=== PATIENT | female | born 1935 | race Caucasian/White ===

== ENCOUNTER 2021-08-31 08:00 | Outpatient (CLI) | payer MEDICARE, BC | END 2021-08-31 23:59 | LOC: LAB 08:00 | PROVIDERS: ATTEND Family Medicine | DX: R39.9 Unspecified symptoms and signs involving the genitourinary system (principal) | CPT/HCPCS: 87086 ==

== ENCOUNTER 2022-03-21 06:57 | Outpatient (CLI) | payer MEDICARE, BC | END 2022-03-21 23:59 | disposition critical access hospital (66) | LOC: EMS 06:57 | DX: R46.89 Other symptoms and signs involving appearance and behavior (principal); R45.1 Restlessness and agitation; M54.9 Dorsalgia, unspecified | CPT/HCPCS: A0425; A0429 ==

== ENCOUNTER 2022-03-21 07:18 | Emergency (ER) | payer MEDICARE, BC ==
--- OUTSIDE RECORDS SUMMARY | 2022-03-21 07:34 | EXTERNAL MEDICAL SUMMARY RPT | Continuity of Care Document ---
:1935 Author Organization [facility] Address [address] [place] [address] Phone Care Team Providers Name Role Phone Millicent Thomas Unavailable Unavailable Allergies No information. Encounters No information. Medications date description facility 20220319 Baclofen 10 MG Oral Tablet [facility] ital 20220117 Cephalexin 500 MG Oral Capsule [facility] 20220117 Phenazopyridine hydrochloride 100 MG Or al Tablet [facility] 20220107 Levothyroxine Sodium 0.088 MG Oral Tabl et [facility] 20220107 Metoprolol Tartrate 25 MG Oral Tablet [facility] 20220107 24 HR Diltiazem Hydrochloride 300 MG Ex tended Release [facility] Capsule 20220107 atorvastatin 10 MG Oral Tablet [facility] Problems date description facility [id number] [facility] 20220220 Malignant neoplasm of unspecified site of left [facility] breast 20220220 Encounter for screening mammogram for [facility] neoplasm of 20220117 [facility] 20220107 Type 2 diabetes mellitus without compli [facility] [id number] Malignant neoplasm of unspecified site of left female [facility] breast 20220107 Hyperlipidemia, unspecified [facility] 20220103 Cardiac murmur, unspecified [facility] Procedures date description facility [id number] [facility] [id number] [facility] [id number] [facility] [id number] [facility] [id number] [facility] [id number] [facility] Results No information. Vital Signs date measurement value source 20220117 weight_standard 48.53 lb 20220117 weight_metric 22.01 kg 20220117 heart_rate 86 /min 20220117 BP_systolic 145 mm[Hg] 20220117 BP_diastolic 95 mm[Hg] 20220305 weight_standard 48.62 lb 20220305 weight_metric 22.05 kg 20220305 temperature_standard 97.7 F 20220305 temperature_metric 36.5 C 20220305 respiration_rate 14 /min 20220305 heart_rate 67 /min 20220305 BP_systolic 142 mm[Hg] 20220305 BP_diastolic 80 mm[Hg] 20220319 weight_standard 49.44 lb 20220319 weight_metric 22.43 kg 20220319 temperature_standard 98.4 F 20220319 temperature_metric 36.89 C 20220319 respiration_rate 18 /min 20220319 height_standard 62 in 20220319 height_metric 157.48 cm 20220319 heart_rate 97 /min 20220319 BP_systolic 131 mm[Hg] 20220319 BP_diastolic 65 mm[Hg] 20220319 BMI 19.9 kg/m2
[2022-03-21] MEDS ORDERED: KETOROLAC 15 MG/ML VIAL IVP STA (07:38)
--- NOTE | 2022-03-21 07:40 | ED Physician Documentation ---
PD HPI BACK PAIN - Stated complaint Stated Complaint: BACK SPASM/PX - Chief complaint Chief Complaint: Back Pain - History obtained from History obtained from: Patient, Family (daughter), EMS - Additional information Additional information: 86-year-old woman with history of A. fib, type 2 diabetes who lives with her daughter. She was awoken Friday morning a little over 48 hours ago with severe left-sided neck pain. They went to [facility] and it was felt to be neck spasm based on symptomatology and examination. Was given some pain control, in the hospital with Percocet and Flexeril. Discharged on baclofen. She went home with her daughter where she has been very sleepy, sleeping 22 hours a day. Poor appetite and some combativeness per the doctor daughter. Pain continued to be significant though. Today she developed a fever at 100.9. Pain is worse with movement and in certain positions. No history of similar prior issues. She is on Pradaxa. Chronically in A. fib. Review of Systems Unable to obtain: Confused (She is confused and much of the history is from the daughter) PD PAST MEDICAL HISTORY - Present Medications Home Medications: Ambulatory Orders Medication Instructions Recorded Confirmed Atorvastatin [Lipitor] 10 mg PO DAILY 03/21/22 03/21/22 Calcium Carbonate [Calcium] 1 tab PO DAILY 03/21/22 03/21/22 Cefdinir 300 mg PO BID #20 cap 03/21/22 Dabigatran [Pradaxa] 150 mg PO BID 03/21/22 03/21/22 Diltiazem HCl [Cardizem Cd] 300 mg PO DAILY 03/21/22 03/21/22 Levothyroxine [Synthroid] 88 mcg PO DAILY 03/21/22 03/21/22 Metoprolol Tartrate [Lopressor] 25 mg PO BID 03/21/22 03/21/22 SITagliptin [Januvia] 100 mg PO DAILY 03/21/22 03/21/22 - Allergies Allergies/Adverse Reactions: Allergies Allergy/AdvReac Type Severity Reaction Status Date / Time moxifloxacin [From Avelox] Allergy Unknown Verified 03/21/22 07:24 PD ED PE NORMAL - Vitals Vital signs reviewed: Yes - General General: No acute distress (But winces with motion), Other (She is alert and oriented to person and place, states the date is March 02, 2022.) - HEENT HEENT: PERRL, EOMI - Neck Neck: Supple, no meningeal sign, Other (Tender over the C-spine especially to the right paracervical muscles) - Cardiac Cardiac: Other (Irregularly irregular with 2 out of 6 decrescendo systolic murmur) - Respiratory Respiratory: No respiratory distress, Clear bilaterally - Abdomen Abdomen: Normal bowel sounds, Soft, Non tender - Back Back: No CVA TTP, Other (Tender to the upper parathoracic muscles bilaterally) - Derm Derm: Normal color, Warm and dry - Extremities Extremities: No edema, No calf tenderness / cord, Other (The patient has equal and normal Achilles and patellar reflexes bilaterally. Normal sensation in all areas of the legs. Patient denies saddle anesthesia. Normal strength in flexi on-extension at the ankles, knees, and flexion of the hips.) - Neuro Eye Opening: Spontaneous Motor: Obeys Commands Verbal: Confused GCS Score: 14 Results - Vitals Vitals: Vital Signs - 24 hr 03/21/22 03/21/22 03/21/22 07:20 09:28 10:00 Temperature 36.7 C Heart Rate 97 83 85 Respiratory 19 16 18 Rate Blood Pressure 160/77 H 159/79 H 138/62 H O2 Saturation 96 96 97 03/21/22 11:45 Temperature Heart Rate 86 Respiratory 15 Rate Blood Pressure 166/83 H O2 Saturation 99 Oxygen O2 Source Room air - EKG (time done) 0755 Rate: Rate (enter#) (89) Rhythm: Atrial fibrillation [place]: Normal QRS: Normal Ischemia: Q waves (anterior). No: ST elevation c/w ischemia, ST depression Compare to prior EKG: Old EKG unavailable Computer interpretation: Agree with computer - Labs Labs: Laboratory Tests 03/21/22 03/21/22 03/21/22 07:49 07:49 07:49 WBC 11.4 H RBC 4.95 Hgb 13.0 Hct 41.0 MCV 82.8 MCH 26.3 L MCHC 31.7 L RDW 16.5 H Plt Count 167 MPV 10.9 H Neut # (Auto) 8.6 H Lymph # (Auto) 1.4 L [place] # (Auto) 1.3 H Eos # (Auto) 0.1 Baso # (Auto) 0.0 Absolute Nucleated RBC 0.00 Nucleated RBC % 0.0 Sodium 137 Potassium 3.5 Chloride 97 L Carbon Dioxide 29 Anion Gap 11.0 BUN 10 Creatinine 0.6 Estimated GFR (MDRD) 95 Glucose 181 H Lactic Acid Calcium 9.0 Total Bilirubin 1.0 AST 35 ALT 30 Alkaline Phosphatase 134 H Troponin I High Sens 15.0 H* Total Protein 7.3 Albumin 3.3 Globulin 4.0 Albumin/Globulin Ratio 0.8 L Urine Color Urine Clarity Urine pH Ur Specific [place] Urine Protein Urine Glucose (UA) Urine Ketones Urine Occult Blood Urine Nitrite Urine Bilirubin Urine Urobilinogen Ur Leukocyte Esterase Ur Microscopic Review Urine Culture Comments Nasal Adenovirus (PCR) Nasal B. parapertussis DNA (PCR) Nasal Coronavir 229E PCR Nasal Coronavir HKU1 PCR Nasal Coronavir NL63 PCR Nasal Coronavir OC43 PCR Nasal Enterovir/Rhinovir PCR Nasal Influenza B PCR Nasal Influenza A PCR Nasal Parainfluen 1 PCR Nasal Parainfluen 2 PCR Nasal Parainfluen 3 PCR Nasal Parainfluen 4 PCR Nasal RSV (PCR) Nasal B.pertussis DNA PCR Nasal C.pneumoniae (PCR) Gus Human Metapneumo PCR Nasal M.pneumoniae (PCR) Nasal SARS-CoV-2 (PCR) 03/21/22 03/21/22 03/21/22 07:49 07:49 11:16 WBC RBC Hgb Hct MCV MCH MCHC RDW Plt Count MPV Neut # (Auto) Lymph # (Auto) [place] # (Auto) Eos # (Auto) Baso # (Auto) Absolute Nucleated RBC Nucleated RBC % Sodium Potassium Chloride Carbon Dioxide Anion Gap BUN Creatinine Estimated GFR (MDRD) Glucose Lactic Acid 1.6 Calcium Total Bilirubin AST ALT Alkaline Phosphatase Troponin I High Sens Total Protein Albumin Globulin Albumin/Globulin Ratio Urine Color YELLOW Urine Clarity CLEAR Urine pH 6.0 Ur Specific [place] 1.015 Urine Protein NEGATIVE Urine Glucose (UA) NEGATIVE Urine Ketones 40 H Urine Occult Blood TRACE-INTA Urine Nitrite NEGATIVE Urine Bilirubin NEGATIVE Urine Urobilinogen 0.2 (NORMAL) Ur Leukocyte Esterase NEGATIVE Ur Microscopic Review NOT INDICATED Urine Culture Comments NOT INDICATED Nasal Adenovirus (PCR) NOT DETECTED Nasal B. parapertussis DNA (PCR) NOT DETECTED Nasal Coronavir 229E PCR NOT DETECTED Nasal Coronavir HKU1 PCR NOT DETECTED Nasal Coronavir NL63 PCR NOT DETECTED Nasal Coronavir OC43 PCR NOT DETECTED Nasal Enterovir/Rhinovir PCR NOT DETECTED Nasal Influenza B PCR NOT DETECTED Nasal Influenza A PCR NOT DETECTED Nasal Parainfluen 1 PCR NOT DETECTED Nasal Parainfluen 2 PCR NOT DETECTED Nasal Parainfluen 3 PCR NOT DETECTED Nasal Parainfluen 4 PCR NOT DETECTED Nasal RSV (PCR) NOT DETECTED Nasal B.pertussis DNA PCR NOT DETECTED Nasal C.pneumoniae (PCR) NOT DETECTED Gus Human Metapneumo PCR NOT DETECTED Nasal M.pneumoniae (PCR) NOT DETECTED Nasal SARS-CoV-2 (PCR) NOT DETECTED - Rads (name of study) CT of the neck and chest shows degenerative changes, enlarged heart and suggestion of pulmonary hypertension Radiology: EMP read contemporaneously PD MEDICAL DECISION MAKING - ED course ED course: This is a tiago 86-year-old woman who presents with her daughter for ongoing neck pain. Diagnosed the other day with a neck spasm. She was febrile early this morning at home we cannot corroborate it despite several hours of observation here. She had a modestly elevated white count but no findings of intrathoracic infection on CT and a normal urinalysis. Also negative COVID test with other viruses checked as well. During her stay she remained well-appearing and nontoxic. She received 50 mg of Toradol with good relief of her pain and passed a road test without issue. CT imaging of the neck and chest were done to evaluate for other etiologies with findings of only degenerative disease. Daughter happy to take her home after work-up. Discussed with her that I think a lot of her altered mental status was from medication the received the other day at the other hospital and given her age and underlying dementia, sedating medication should probably be avoided if able. Given that she appeared well with minimal pain after Toradol and Tylenol here, Tylenol was recommended to be continued as well as Salonpas patches. After the patient's discharge medical lab tech instructor came to me and said she had 2 urines with this patient's name on it. The original 1 is the one that was resulted with no signs of infection. A second 1 did show white cells, nitrite. We will culture it and I called the daughter and sent a prescription for antibiotics to the pharmacy. Departure - Departure Disposition: Home, Self Care Clinical Impression: Neck pain Condition: Good Record reviewed to determine appropriate education?: Yes Instructions: ED Neck Back Pain General Prescriptions: Cefdinir 300 mg PO BID #20 cap Comments: As discussed she has severe degenerative change in her neck, no findings of infection in the chest or urine. Also negative COVID test. I recommend continuing the Tylenol, 1000 mg every 6-8 hours and Salonpas patches. Follow-up with your doctor on Friday as scheduled. Return for new or worsening symptoms. Discharge Date/Time: 03/21/22 12:16
[2022-03-21 07:58] LABS: BASOPHILS % (AUTO) 0.4 %; EOSINOPHILS # (AUTO) 0.1 10^3/uL (0.0-0.7); EOSINOPHILS % (AUTO) 0.7 %; LYMPHOCYTES # (AUTO) 1.4 10^3/uL (1.5-3.5); LYMPHOCYTES % (AUTO) 11.8 %; MEAN CORPUSCULAR HEMOGLOBIN 26.3 pg (27.0-31.0); MEAN CORPUSCULAR HGB CONC 31.7 g/dL (32.0-36.0); MEAN CORPUSCULAR VOLUME 82.8 fL (81.0-99.0); MEAN PLATELET VOLUME 10.9 fL (7.9-10.8); MONOCYTES # (AUTO) 1.3 10^3/uL (0.0-1.0); MONOCYTES % (AUTO) 11.6 %; NEUTROPHILS # (AUTO) 8.6 10^3/uL (1.5-6.6); PLT - PLATELET COUNT 167 10^3/uL (130-450); RED BLOOD COUNT 4.95 10^6/uL (4.20-5.40); RED CELL DISTRIBUTION WIDTH 16.5 % (12.0-15.0); WHITE BLOOD COUNT 11.4 x10^3/uL (4.8-10.8)
[2022-03-21] MEDS ORDERED: IOPAMIDOL-300 100 ML VIAL ONE (08:03)
[2022-03-21 08:11] LABS: ALBUMIN 3.3 g/dL (3.2-5.5); ALBUMIN/GLOBULIN RATIO 0.8 (1.0-2.2); CREATININE 0.6 mg/dL (0.4-1.0); POTASSIUM 3.5 mmol/L (3.5-5.0); TOTAL PROTEIN 7.3 g/dL (6.7-8.2)
[2022-03-21 08:55] LABS: B. PARAPERTUSSIS- RESP PCR PAN NOT DETECTED; B. PERTUSSIS- RESP PCR PANEL NOT DETECTED; C. PNEUMONIAE- RESP PCR PANEL NOT DETECTED; CORONAVIRUS 229E-RESP PCR NOT DETECTED; CORONAVIRUS HKU1-RESP PCR NOT DETECTED; CORONAVIRUS NL63-RESP PCR NOT DETECTED; CORONAVIRUS OC43-RESP PCR NOT DETECTED; HUMAN METAPNEUMOVIRUS NOT DETECTED; INFLUENZA A- RESP PCR PANEL NOT DETECTED; INFLUENZA B - RESP PCR PANEL NOT DETECTED; M. PNEUMONIAE- RESP PCR PANEL NOT DETECTED; PARAINFLUENZA VIRUS 1 NOT DETECTED; PARAINFLUENZA VIRUS 2 NOT DETECTED; PARAINFLUENZA VIRUS 3 NOT DETECTED; PARAINFLUENZA VIRUS 4 NOT DETECTED; RHINOVIRUS/ENTEROVIRUS NOT DETECTED; RSV- RESP PCR PANEL NOT DETECTED; SARS-CoV-2 -RESP PCR PANEL NOT DETECTED
[2022-03-21] MEDS ORDERED: IOPAMIDOL-300 100 ML VIAL IVP ONE (09:07)
--- NOTE | 2022-03-21 09:18 | CT Report ---
PROCEDURE: CERVICAL SPINE WO INDICATIONS: neck pain TECHNIQUE: Noncontrast 3 mm thick sections acquired from the skull base to the T4 level. Sagittal and coronal r eformats were then constructed. For radiation dose reduction, the following was used: automated exp osure control, adjustment of mA and/or kV according to patient size. COMPARISON: None. FINDINGS: Image quality: Excellent. Bones: No fractures or dislocations. Visualized superior ribs are intact. Significant multilevel d egenerative changes are present including severe disc space narrowing at C4-5, C5-6, C6-7. There is r eversal cervical curvature with apex at C5-6. 3 mm anterolisthesis is present at C3 on C4. Multilevel anterior osteophytes are present most severe from C4 through C7. Multilevel uncovertebral hypertroph y is present. Soft tissues: Prevertebral soft tissues are normal in thickness. No paravertebral hematomas. No ap ical pneumothoraces. IMPRESSION: Multilevel degenerative changes without visualized fracture. Reviewed by: Yandy Gutierrez MD on 03/21/2022 8:17 AM KIRAN Approved by: Yandy Gutierrez MD on 03/21/2022 8:17 AM KIRAN Station ID: [id number]
--- NOTE | 2022-03-21 09:24 | CT Report ---
PROCEDURE: ANGIO CHEST W/WO INDICATIONS: Upper back pain, aorta protocol CONTRAST: IV CONTRAST: Isovue 300 ml: 80 PO CONTRAST: *NO PO CONTRAST TECHNIQUE: After the administration of intravenous contrast, 2 mm axial images were acquired from the pulmonary apices to the posterior costophrenic angles during the arterial phase. In addition, 1 mm lung kernel and 5 mm soft tissue kernel reconstructions were performed. 3-dimensional coronal oblique maximum int ensity projection (MIP) reformats, 8 mm axial MIP, and 5 mm coronal and sagittal MPR reformats were t hen performed through the thorax. For radiation dose reduction, the following was used: automated exp osure control, adjustment of mA and/or kV according to patient size. COMPARISON: None FINDINGS: Image quality: Excellent. Pulmonary arteries: Pulmonary arteries are mildly enlarged. There are no intraluminal filling defect s to suggest central pulmonary embolism. Lungs and pleura: Lungs are clear. No pleural effusions or pneumothorax. Central and peripheral ai rways are patent. Mediastinum: Heart size is markedly enlarged, without pericardial effusion. No mediastinal or hilar adenopathy. Ascending thoracic aorta measures 3.5 cm. Esophagus is normal in caliber, without hiatal hernia. Bones and chest wall: No suspicious bony lesions. Ribs and thoracic spine appear intact throughout. No axillary or supraclavicular adenopathy. Thyroid gland is not visualized. Abdomen: Visualized upper abdominal solid organs appear normal in the early arterial phase of enhanc ement. IMPRESSION: No pulmonary embolism. Heart is markedly enlarged. Pulmonary arteries are enlarged suggesting pulmonary artery hypertension. CLINICAL RECOMMENDATION STATEMENTS: In patients <35 years with an ITN detected on CT, MRI, or extrathyroidal ultrasound, the Committee re commends further evaluation with dedicated thyroid ultrasound if the nodule is "e1 cm and has no susp icious imaging features, and if the patient has normal life expectancy. In patients "e35 years with an ITN detected on CT, MRI, or extrathyroidal ultrasound, the Committee r ecommends further evaluation with dedicated thyroid ultrasound if the nodule is "e1.5 cm and has no s uspicious imaging features, and if the patient has normal life expectancy. (ACR, 2014) Reviewed by: Yandy Gutierrez MD on 03/21/2022 8:23 AM KIRAN Approved by: Yandy Gutierrez MD on 03/21/2022 8:23 AM [place] Station ID: [id number]
[2022-03-21] MEDS ORDERED: SODIUM CHLORIDE 0.9% 1,000 ML IV STA (10:06)
[2022-03-21 11:29] LABS: BILIRUBIN,URINE NEGATIVE (NEGATIVE); GLUCOSE, URINE (UA) NEGATIVE (NEGATIVE); PROTEIN,URINE NEGATIVE (NEGATIVE); UROBILINOGEN,URINE 0.2 (NORMAL) E.U./dL (NORMAL)
[2022-03-21] MEDS ORDERED: ACETAMINOPHEN 500 MG TABLET PO STA (11:40)
[2022-03-21 11:55] VITALS: BP 166/83
[2022-03-21 12:43] LABS: CLARITY,URINE SL. CLOUDY (CLEAR); LEUKOCYTE ESTERASE, URINE MODERATE (NEGATIVE); NITRITE,URINE POSITIVE (NEGATIVE)
[2022-03-21 12:44] LABS: KETONES,URINE (UA) NEGATIVE (NEGATIVE); OCCULT BLOOD,URINE NEGATIVE (NEGATIVE); PH,URINE 6.5 PH (5.0-7.5)
[2022-03-21 12:45] LABS: BACTERIA,URINE Moderate /HPF (None Seen); RBC,URINE 0-5 /HPF (0-5); SQUAMOUS EPITHELIAL CELL,UR RARE Squamous (<= Few)
== END 2022-03-21 12:16 | disposition home or self-care (01) ==
LOC: EDUNIT# → ED 07:18
DX: M54.2 Cervicalgia (principal); N12 Tubulo-interstitial nephritis, not specified as acute or chronic; Z20.822 Contact with and (suspected) exposure to COVID-19
CPT/HCPCS: 36415; 80053; 81001; 81003; 83605; 84484; 85025; 87040; 87077; 87086; 87181; 87633; 93005; 96374; 99281

== ENCOUNTER 2022-09-18 19:01 | Emergency (ER) | payer MEDICARE, BC ==
--- OUTSIDE RECORDS SUMMARY | 2022-09-18 19:27 | EXTERNAL MEDICAL SUMMARY RPT | Continuity of Care Document ---
:1935 Author Organization [facility] Address [address] [place] [address] Phone Allergies No information. Encounters No information. Functional Status No information. Immunizations No information. Medications No information. Problems No information. Procedures No information. Results/Labs test date author facility value unit interpret ation Result panel 1 (unknown) (no (unknown) (unknown) (no value) (units (unk nown) date) unknown) (unknown) (no (unknown) (unknown) Medications: (units (u nknown) date) unknown) (unknown) (no (unknown) (unknown) Orders: (units (unkno wn) date) unknown) (unknown) (no (unknown) (unknown) Qualifiers: (units (un known) date) unknown) (unknown) (no (unknown) (unknown) Status: Acute (units ( unknown) date) unknown) (unknown) (no (unknown) (unknown) Status: Chronic (units (unknown) date) unknown) (unknown) (no (unknown) (unknown) (no value) (units (unk nown) date) unknown) (unknown) (no (unknown) (unknown) 06/19/22 (units (unkno wn) date) unknown) (unknown) (no (unknown) (unknown) 06/20/22 0934 (units ( unknown) date) unknown) (unknown) (no (unknown) (unknown) 15:23 (units (unkno wn) date) unknown) (unknown) (no (unknown) (unknown) [place] [employer] [place] (units ( unknown) date) [id number] unknown) (unknown) (no (unknown) (unknown) [facility] ([facility] date[facility] unknown) (unknown) (no (unknown) (unknown) Hypothyroidism (units (unknown) date) type: acquired unknown) Qualified Code(s): E03.9 - (unknown) (no (unknown) (unknown) Internal Medicine (units (unknown) date) Office Visit unknown) (unknown) (no (unknown) (unknown) Signed (units (unkno wn) date) unknown) (unknown) (no (unknown) (unknown) Take 1 tab daily (units (unknown) date) with food for pain unknown) relief. 15 mg PO DAILY 90 tabs 3RF (unknown) (no (unknown) (unknown) heart racing (units (u nknown) date) unknown) (unknown) (no (unknown) (unknown) (no value) (units (unk nown) date) unknown) (unknown) (no (unknown) (unknown) #180 caps (units (unkn own) date) 06/26/21 [Rx unknown) Confirmed 06/19/22] (unknown) (no (unknown) (unknown) (1) Frequent (units (u nknown) date) falls: unknown) (unknown) (no (unknown) (unknown) (2) Generalized (units (unknown) date) weakness: unknown) (unknown) (no (unknown) (unknown) (3) Sarcopenia: (units (unknown) date) unknown) (unknown) (no (unknown) (unknown) (4) Weight loss (units (unknown) date) observed on unknown) examination: (unknown) (no (unknown) (unknown) (5) (units (unkno wn) date) Hypothyroidism: unknown) (unknown) (no (unknown) (unknown) (6) Cachexia: (units ( unknown) date) unknown) (unknown) (no (unknown) (unknown) .COMPLEX #180 (units ( unknown) date) caps 01/07/22 [Rx unknown) Confirmed 06/19/22] (unknown) (no (unknown) (unknown) [id number] (units (unkno wn) date) unknown) (unknown) (no (unknown) (unknown) 01/07/22 [Rx (units (u nknown) date) Confirmed unknown) 06/19/22] (unknown) (no (unknown) (unknown) 04/02/22 [Rx (units (u nknown) date) Confirmed unknown) 06/19/22] (unknown) (no (unknown) (unknown) 06/19/22 (units (unkno wn) date) unknown) (unknown) (no (unknown) (unknown) 06/19/22] (units (unkn own) date) unknown) (unknown) (no (unknown) (unknown) 86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 (unknown) (no (unknown) (unknown) 86F presents with (units (unknown) date) DTR f/up ER visit unknown) for fall. Pt was attempting to get into bed (unknown) (no (unknown) (unknown) A referral has (units (unknown) date) been initiated for unknown) you to see Physical Therapy here at the (unknown) (no (unknown) (unknown) Add'l Plan (units (unk nown) date) Details unknown) (unknown) (no (unknown) (unknown) Add'l Plan*: (units (u nknown) date) unknown) (unknown) (no (unknown) (unknown) Advil. (units (unkno wn) date) unknown) (unknown) (no (unknown) (unknown) Affect: normal (units (unknown) date) affect unknown) (unknown) (no (unknown) (unknown) Age/Sex: 86 / F (units (unknown) date) Date of Service: unknown) (unknown) (no (unknown) (unknown) Allergies (units (unkn own) date) unknown) (unknown) (no (unknown) (unknown) Anemia (units (unkno wn) date) unknown) (unknown) (no (unknown) (unknown) Anesthesia (units (unk nown) date) unknown) (unknown) (no (unknown) (unknown) Appearance: (units (un known) date) grossly normal and unknown) well kempt (unknown) (no (unknown) (unknown) Assessment + Plan (units (unknown) date) unknown) (unknown) (no (unknown) (unknown) Asthma (units (unkno wn) date) unknown) (unknown) (no (unknown) (unknown) Atrial (units (unkno wn) date) fibrillation unknown) (-1997) (unknown) (no (unknown) (unknown) Attending Dr: (units ( unknown) date) Millicent OLIVA unknown) (unknown) (no (unknown) (unknown) BMI 18.0 (units (unkno wn) date) unknown) (unknown) (no (unknown) (unknown) BP 150/68 H (units (un known) date) unknown) (unknown) (no (unknown) (unknown) Blood Pressure (units (unknown) date) Location Lt unknown) brachial (unknown) (no (unknown) (unknown) Breast cancer (units ( unknown) date) (-1999) unknown) (unknown) (no (unknown) (unknown) Cerumen impaction (units (unknown) date) unknown) (unknown) (no (unknown) (unknown) Chicken pox (units (un known) date) (-194) unknown) (unknown) (no (unknown) (unknown) Chief Complaint (units (unknown) date) unknown) (unknown) (no (unknown) (unknown) Chief Complaint: (units (unknown) date) f/up ER visit unknown) (unknown) (no (unknown) (unknown) Confirmed (units (unkn own) date) 06/19/22] unknown) (unknown) (no (unknown) (unknown) Const (units (unkno wn) date) unknown) (unknown) (no (unknown) (unknown) : 1935 (units (unknown) date) Acct:[id number] unknown) (unknown) (no (unknown) (unknown) Dept at (units (unkno wn) date) . 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 unknown) (unknown) (no (unknown) (unknown) ED F/u, s/p fall (units (unknown) date) and medication unknown) concerns (unknown) (no (unknown) (unknown) Effort + (units (unkno wn) date) Inspection: normal unknown) respiratory effort and able to speak in complete (unknown) (no (unknown) (unknown) Exam (units (unkno wn) date) unknown) (unknown) (no (unknown) (unknown) Exam Narrative (units (unknown) date) unknown) (unknown) (no (unknown) (unknown) Exam Narrative: (units (unknown) date) unknown) (unknown) (no (unknown) (unknown) Family History (units (unknown) date) (Reviewed 06/19/22 unknown) @ 15:36 by PJ Lara) (unknown) (no (unknown) (unknown) Father (units (unknown) date) Cancer unknown) (unknown) (no (unknown) (unknown) For your pain, I (units (unknown) date) recommend starting unknown) Mobic, which is the same effect profile as (unknown) (no (unknown) (unknown) General: (units (unkno wn) date) cooperative, unknown) comfortable, no acute distress, well developed, well (unknown) (no (unknown) (unknown) General: patient (units (unknown) date) oriented x3 unknown) (unknown) (no (unknown) (unknown) HPI (units (unkno wn) date) unknown) (unknown) (no (unknown) (unknown) Has trouble (units (un known) date) taking pills. unknown) Would like a once daily medication for pain. (unknown) (no (unknown) (unknown) Headache (units (unkno wn) date) unknown) (unknown) (no (unknown) (unknown) Health Management (units (unknown) date) unknown) (unknown) (no (unknown) (unknown) Health Management (units (unknown) date) reviewed with unknown) patient: Yes (unknown) (no (unknown) (unknown) Height 5 ft 4 in (units (unknown) date) unknown) (unknown) (no (unknown) (unknown) History of (units (unk nown) date) cholecystectomy unknown) (unknown) (no (unknown) (unknown) History of (units (unk nown) date) colonoscopy unknown) (unknown) (no (unknown) (unknown) Hyperlipidemia (units (unknown) date) unknown) (unknown) (no (unknown) (unknown) Hypothyroidism (units (unknown) date) unknown) (unknown) (no (unknown) (unknown) Hypothyroidism, (units (unknown) date) unspecified unknown) (unknown) (no (unknown) (unknown) Intake (units (unkno wn) date) unknown) (unknown) (no (unknown) (unknown) Intake Note: (units (u nknown) date) unknown) (unknown) (no (unknown) (unknown) Intake performed (units (unknown) date) by: unknown) Dianelys Rachel (unknown) (no (unknown) (unknown) Intake- Clincial (units (unknown) date) Staff unknown) (unknown) (no (unknown) (unknown) Last Menstural (units (unknown) date) Cycle + Details unknown) (unknown) (no (unknown) (unknown) Loc: [facility] (units (unkno wn) date) unknown) (unknown) (no (unknown) (unknown) Medical History (units (unknown) date) (Updated 06/20/22 unknown) @ 09:30 by PJ Lara) (unknown) (no (unknown) (unknown) Medications (units (un known) date) unknown) (unknown) (no (unknown) (unknown) Mental Status: (units (unknown) date) mental status unknown) grossly normal (unknown) (no (unknown) (unknown) Mood: congruent (units (unknown) date) mood unknown) (unknown) (no (unknown) (unknown) Neuro (units (unkno wn) date) unknown) (unknown) (no (unknown) (unknown) New (units (unkno wn) date) unknown) (unknown) (no (unknown) (unknown) Orientation: (units (u nknown) date) oriented x3 unknown) (unknown) (no (unknown) (unknown) Other Menstrual (units (unknown) date) Period: unknown) Postmenopausal (unknown) (no (unknown) (unknown) Other penitentiary (units (unknown) date) (current) drug unknown) therapy (unknown) (no (unknown) (unknown) PFSH (units (unkno wn) date) unknown) (unknown) (no (unknown) (unknown) Pain is a (units (unkn own) date) concern, c/o pain unknown) right back related to fall. Pt on blood thinners. (unknown) (no (unknown) (unknown) Patient: (units (unkno wn) date) Loch Lloyd,Gloria L unknown) MR#: [id number] (unknown) (no (unknown) (unknown) Please come back (units (unknown) date) to see me when you unknown) are done with PT. (unknown) (no (unknown) (unknown) Please consider (units (unknown) date) getting one of the unknown) mRNA vaccines, the whole series as the J+J (unknown) (no (unknown) (unknown) Please try (units (unk nown) date) drinking 3 unknown) Glucerna a day, mixed with ice cream and fruit of your (unknown) (no (unknown) (unknown) Position Sitting (units (unknown) date) unknown) (unknown) (no (unknown) (unknown) Psych (units (unkno wn) date) unknown) (unknown) (no (unknown) (unknown) Pulse 80 (units (unkno wn) date) unknown) (unknown) (no (unknown) (unknown) Pulse Oximetry (units (unknown) date) (%) 96 unknown) (unknown) (no (unknown) (unknown) Pulse Source (units (u nknown) date) Monitor unknown) (unknown) (no (unknown) (unknown) ROS (units (unkno wn) date) unknown) (unknown) (no (unknown) (unknown) RTC 1 month or (units (unknown) date) sooner, as needed. unknown) (unknown) (no (unknown) (unknown) Reason For Visit (units (unknown) date) unknown) (unknown) (no (unknown) (unknown) Recurrent UTI (units ( unknown) date) unknown) (unknown) (no (unknown) (unknown) Referral Physical (units (unknown) date) Therapy M62.84 - unknown) Sarcopenia, R29.6 - Repeated falls, R53.1 - (unknown) (no (unknown) (unknown) Referrals (units (unkn own) date) unknown) (unknown) (no (unknown) (unknown) Reports as per (units (unknown) date) HPI unknown) (unknown) (no (unknown) (unknown) Resp (units (unkno wn) date) unknown) (unknown) (no (unknown) (unknown) Reviewed ER visit (units (unknown) date) with patient and unknown) daughter. Pt with another pound of weight (unknown) (no (unknown) (unknown) Sarcopenia (units (unk nown) date) unknown) (unknown) (no (unknown) (unknown) Signed By: (units (unk nown) date) <Electronically unknown) signed by Millicent Thomas> (unknown) (no (unknown) (unknown) Smoking Status: (units (unknown) date) Never smoker unknown) (unknown) (no (unknown) (unknown) Speech and (units (unk nown) date) Movement: speech unknown) and movement normal (unknown) (no (unknown) (unknown) Stroke (-2017) (units (unknown) date) unknown) (unknown) (no (unknown) (unknown) Surgical History (units (unknown) date) (Reviewed 06/19/22 unknown) @ 15:36 by PJ Lara) (unknown) (no (unknown) (unknown) Thank you for (units ( unknown) date) coming to see me unknown) today about your recent ER visit. (unknown) (no (unknown) (unknown) This note may (units ( unknown) date) have been all or unknown) partially generated using voice recognition (unknown) (no (unknown) (unknown) Tobacco + (units (unkn own) date) Substance Use unknown) (unknown) (no (unknown) (unknown) Tobacco Status (units (unknown) date) unknown) (unknown) (no (unknown) (unknown) UTI (urinary (units (u nknown) date) tract infection) unknown) (unknown) (no (unknown) (unknown) Visit Reasons: ED (units (unknown) date) F/u, s/p fall/med unknown) review (unknown) (no (unknown) (unknown) Vitals (units (unkno wn) date) unknown) (unknown) (no (unknown) (unknown) Weakness (units (unkno wn) date) unknown) (unknown) (no (unknown) (unknown) Weight 105 lb 2 (units (unknown) date) oz unknown) (unknown) (no (unknown) (unknown) Weight loss (units (un known) date) observed on unknown) examination (unknown) (no (unknown) (unknown) [Rx Confirmed (units ( unknown) date) 06/19/22] unknown) (unknown) (no (unknown) (unknown) a low grade fever (units (unknown) date) the following unknown) morning after the ER visit. She wonders if her (unknown) (no (unknown) (unknown) alcohol intake: (units (unknown) date) never unknown) (unknown) (no (unknown) (unknown) and missed, (units (unk nown) date) hitting her hip unknown) and back on her bed side table. Dtr reports she ran (unknown) (no (unknown) (unknown) atorvastatin 10 (units (unknown) date) mg tablet See Rx unknown) Instructions .Route .COMPLEX #45 tabs 01/07/22 (unknown) (no (unknown) (unknown) balance, and (units (u nknown) date) endurance as unknown) goals. Pt in favor of referral and provided phone (unknown) (no (unknown) (unknown) blood sugar (units (un known) date) diagnostic (Blood unknown) Glucose Test strips) #300 ea 03/27/22 [Rx (unknown) (no (unknown) (unknown) blood-glucose (units ( unknown) date) meter #1 ea unknown) 05/09/20 [Rx Confirmed 06/19/22] (unknown) (no (unknown) (unknown) calcium 500 mg (units (unknown) date) tablet 500 mg unknown) DAILY 04/11/22 [History Confirmed 06/19/22] (unknown) (no (unknown) (unknown) choice to gain (units (unknown) date) some weight. unknown) (unknown) (no (unknown) (unknown) cholecalciferol (units (unknown) date) (vitamin D3) 25 unknown) mcg (1,000 unit) capsule 2,000 unit PO DAILY (unknown) (no (unknown) (unknown) common side (units (un known) date) effects, risks unknown) versus benefits of treatment. Pt in favor of a trial (unknown) (no (unknown) (unknown) consider drinking (units (unknown) date) 3 Glucerna a day, unknown) may mix with ice cream and some fruit to (unknown) (no (unknown) (unknown) dabigatran (units (unk nown) date) etexilate 150 mg unknown) capsule (Pradaxa) See Rx Instructions .Route (unknown) (no (unknown) (unknown) diltiazem HCl 90 (units (unknown) date) mg tablet 90 mg PO unknown) TID #270 tabs 06/03/22 [Rx Confirmed (unknown) (no (unknown) (unknown) get out of the (units (unknown) date) house fairly unknown) easily. She is willing to come to [place] for PT, (unknown) (no (unknown) (unknown) get up off of the (units (unknown) date) ground by unknown) yourself. Please call to schedule (unknown) (no (unknown) (unknown) goal of being (units ( unknown) date) able to get unknown) herself up off of the ground independently, better (unknown) (no (unknown) (unknown) groomed and frail (units (unknown) date) appearing unknown) (unknown) (no (unknown) (unknown) have occurred. If (units (unknown) date) there are any unknown) questions, please contact the Medical Records (unknown) (no (unknown) (unknown) help her gain (units ( unknown) date) weight and have unknown) more energy. Strongly recommend PT. Pt prefers (unknown) (no (unknown) (unknown) home PT but (units (un known) date) understands she unknown) does not qualify for this due to her being able to (unknown) (no (unknown) (unknown) hospital, and I (units (unknown) date) have told them unknown) that your goal is to not only, not fall, but to (unknown) (no (unknown) (unknown) lancets 28 gauge (units (unknown) date) (Super Thin unknown) Lancets) #100 ea 10/23/21 [Rx Confirmed 06/19/22] (unknown) (no (unknown) (unknown) levothyroxine 88 (units (unknown) date) mcg tablet See Rx unknown) Instructions .Route .COMPLEX #90 tabs (unknown) (no (unknown) (unknown) loss since we last (units (unknown) date) saw her. Muscle unknown) wasting, frail, thin. Encouraged patient to (unknown) (no (unknown) (unknown) may occur. (units (unk nown) date) Occasional unknown) wrong-word or 'sound-alike' substitutions may have (unknown) (no (unknown) (unknown) meloxicam (units (unkn own) date) unknown) (unknown) (no (unknown) (unknown) meloxicam 15 mg (units (unknown) date) tablet 15 mg PO unknown) DAILY #90 tabs 06/19/22 [Rx Confirmed 06/19/22] (unknown) (no (unknown) (unknown) metoprolol (units (unk nown) date) tartrate 25 mg unknown) tablet See Rx Instructions .Route .COMPLEX #180 tabs (unknown) (no (unknown) (unknown) mother is (units (unkno wn) date) dehydrated, which unknown) causes her to experience low grade fevers as well as (unknown) (no (unknown) (unknown) moxifloxacin (units (u nknown) date) [From Avelox] unknown) Allergy (Mild, Verified 06/19/22 15:23) (unknown) (no (unknown) (unknown) multivitamin 1 (units (unknown) date) tab PO DAILY unknown) 04/11/22 [History Confirmed 06/19/22] (unknown) (no (unknown) (unknown) not consistently (units (unknown) date) under 60. BP at unknown) home today 140s/90. HR 76. (unknown) (no (unknown) (unknown) number for (units (unk nown) date) scheduling. unknown) (unknown) (no (unknown) (unknown) occurred due to (units (unknown) date) the inherent unknown) limitations of voice recognition software. Please (unknown) (no (unknown) (unknown) of this (units (unkno wn) date) medication, which unknown) is provided today. (unknown) (no (unknown) (unknown) read the note (units ( unknown) date) carefully and unknown) recognize, using context, where these substitutions (unknown) (no (unknown) (unknown) recommend twice (units (unknown) date) weekly x at least unknown) 2 months and that she focus/concentrate on a (unknown) (no (unknown) (unknown) right hip aching (units (unknown) date) unknown) (unknown) (no (unknown) (unknown) sentences (units (unkn own) date) unknown) (unknown) (no (unknown) (unknown) sitagliptin 100 mg (units (unknown) date) tablet (Januvia) unknown) See Rx Instructions .Route .COMPLEX #90 tabs (unknown) (no (unknown) (unknown) software. (units (unkn own) date) Although every unknown) effort is made to edit content, alteration tailor errors (unknown) (no (unknown) (unknown) substance use (units ( unknown) date) type: does not use unknown) (unknown) (no (unknown) (unknown) the falls. Dtr (units (unknown) date) reports her unknown) mother's HR and BP are generally good at home, HR (unknown) (no (unknown) (unknown) was not at all as (units (unknown) date) effective as the unknown) mRNA vaccines are. (unknown) (no (unknown) (unknown) your evaluation. (units (unknown) date) unknown) Social History No information. Vital Signs No information.
[2022-09-18 19:42] LABS: BASOPHILS # (AUTO) 0.1 10^3/uL (0.0-0.1); BASOPHILS % (AUTO) 0.5 %; EOSINOPHILS # (AUTO) 0.5 10^3/uL (0.0-0.7); EOSINOPHILS % (AUTO) 4.8 %; HGB - HEMOGLOBIN 14.2 g/dL (12.0-16.0); LYMPHOCYTES # (AUTO) 3.1 10^3/uL (1.5-3.5); LYMPHOCYTES % (AUTO) 30.8 %; MEAN CORPUSCULAR HGB CONC 31.6 g/dL (32.0-36.0); MEAN CORPUSCULAR VOLUME 88.8 fL (81.0-99.0); MEAN PLATELET VOLUME 10.8 fL (7.9-10.8); NEUTROPHILS # (AUTO) 5.3 10^3/uL (1.5-6.6); NEUTROPHILS % (AUTO) 53.7 %; PLT - PLATELET COUNT 203 10^3/uL (130-450); RED BLOOD COUNT 5.07 10^6/uL (4.20-5.40); RED CELL DISTRIBUTION WIDTH 17.7 % (12.0-15.0); WHITE BLOOD COUNT 9.9 x10^3/uL (4.8-10.8)
[2022-09-18 19:58] LABS: ALBUMIN 3.6 g/dL (3.2-5.5); BILIRUBIN,TOTAL 0.4 mg/dL (0.2-1.0); CALCIUM 9.4 mg/dL (8.5-10.3); CREATININE 0.8 mg/dL (0.4-1.0); POTASSIUM 3.3 mmol/L (3.5-5.0); TOTAL PROTEIN 7.3 g/dL (6.7-8.2)
--- NOTE | 2022-09-18 21:42 | ED Physician Documentation ---
PD HPI FOCAL NEURO - Stated complaint Stated Complaint: HIGH BP, DIZZY - Chief complaint Chief Complaint: Neuro - History obtained from History obtained from: Patient, Family - Additional information Additional information: 87-year-old woman with history of atrial fibrillation on Pradaxa, although she only takes the Pradaxa about half the time. She presents with daughter for an episode of dizziness today. She got out of bed and was unsteady. She feels better now but they noted her blood pressure at home to be around 175/115. Per the daughter she seems back to normal now. She has a history of an old stroke, no prior imaging available here. Review of Systems Constitutional: denies: Fever, Chills Throat: denies: Dental pain / toothache, Sore throat Cardiac: denies: Chest pain / pressure, Palpitations Respiratory: denies: Dyspnea PD PAST MEDICAL HISTORY - Present Medications Home Medications: Ambulatory Orders Medication Instructions Recorded Confirmed Atorvastatin [Lipitor] 10 mg PO DAILY 03/21/22 03/21/22 Calcium Carbonate [Calcium] 1 tab PO DAILY 03/21/22 03/21/22 Cefdinir 300 mg PO BID #20 cap 03/21/22 Dabigatran [Pradaxa] 150 mg PO BID 03/21/22 03/21/22 Diltiazem HCl [Cardizem Cd] 300 mg PO DAILY 03/21/22 03/21/22 Levothyroxine [Synthroid] 88 mcg PO DAILY 03/21/22 03/21/22 Metoprolol Tartrate [Lopressor] 25 mg PO BID 03/21/22 03/21/22 SITagliptin [Januvia] 100 mg PO DAILY 03/21/22 03/21/22 - Allergies Allergies/Adverse Reactions: Allergies Allergy/AdvReac Type Severity Reaction Status Date / Time moxifloxacin [From Avelox] Allergy Unknown Verified 09/18/22 19:26 PD ED PE NORMAL - Vitals Vital signs reviewed: Yes - General General: Alert and oriented X 3, No acute distress - HEENT HEENT: PERRL, EOMI - Neck Neck: Supple, no meningeal sign, No bony TTP - Cardiac Cardiac: Other (Irregularly irregular with prominent S3) - Respiratory Respiratory: No respiratory distress, Clear bilaterally - Abdomen Abdomen: Non tender, Non distended - Back Back: No CVA TTP, No spinal TTP - Derm Derm: Normal color, Warm and dry - Extremities Extremities: No edema, No calf tenderness / cord - Neuro Neuro: Alert and oriented X 3, console manager 2-12 intact, No motor deficit, No sensory deficit, Other (Normal unassisted gait, she does have her pelvis tilted a little bit to the right but the daughter says that is chronic. Negative Romberg. No truncal ataxia.) Eye Opening: Spontaneous Motor: Obeys Commands Verbal: Oriented GCS Score: 15 - Psych Psych: Normal mood, Normal affect NIHSS - Time Time: 21:30 - Level of Consciousness Level of consciousness: (0) Alert, Keenly responsive LOC Questions: (0) Answers both Q's correct LOC Commands: (0) Performs both correctly - Gaze Best Gaze: (0) Normal - Visual Visual: (0) No loss - Facial Palsy Facial Palsy: (0) Normal, symmetrical movement - Motor Arms (both separate) Motor Arm (right): (0) No drift Motor Arm (left): (0) No drift - Motor Legs (both separate) Motor Leg (right): (0) No drift Motor Leg (left): (0) No drift - Limb Ataxia Limb Ataxia: (0) Absent - Sensory Sensory: (0) Normal - Best Language Best Language: (0) No aphasia - Dysarthria Dysarthria: (0) Normal - Extinction and Inattention (formally neg Extinction and inattention: (0) No abnormality - Total Score/Results Total Score/Result: 0 Results - Vitals Vitals: Vital Signs - 24 hr 09/18/22 09/18/22 09/18/22 19:23 19:26 21:21 Temperature 36.3 C L 36.5 C Heart Rate 85 85 86 Respiratory 16 16 Rate Blood Pressure 117/93 H 117/93 H 163/134 H O2 Saturation 97 97 98 09/18/22 23:00 Temperature 36.5 C Heart Rate 82 Respiratory 16 Rate Blood Pressure 140/90 H O2 Saturation 98 Oxygen O2 Source Room air - EKG (time done) 1929 Rate: Rate (enter#) (80) Rhythm: NSR [place]: Normal Intervals: Normal [place] QRS: Normal Ischemia: Non specific changes (RSR prime in V1 with Q waves inferior that are quite small. Some diffuse T wave flattening.) Computer interpretation: Agree with computer - Labs Labs: Laboratory Tests 09/18/22 09/18/22 09/18/22 19:37 19:37 19:37 WBC 9.9 RBC 5.07 Hgb 14.2 Hct 45.0 MCV 88.8 MCH 28.0 MCHC 31.6 L RDW 17.7 H Plt Count 203 MPV 10.8 Neut # (Auto) 5.3 Lymph # (Auto) 3.1 [place] # (Auto) 1.0 Eos # (Auto) 0.5 Baso # (Auto) 0.1 Absolute Nucleated RBC 0.00 Nucleated RBC % 0.0 Sodium 139 Potassium 3.3 L Chloride 100 L Carbon Dioxide 32 Anion Gap 7.0 BUN 15 Creatinine 0.8 Estimated GFR (MDRD) 68 L Glucose 209 H POC Whole Bld Glucose Calcium 9.4 Total Bilirubin 0.4 AST 56 H ALT 43 Alkaline Phosphatase 191 H Troponin I High Sens 10.1 Total Protein 7.3 Albumin 3.6 Globulin 3.7 Albumin/Globulin Ratio 1.0 Lipase 35 09/18/22 22:31 WBC RBC Hgb Hct MCV MCH MCHC RDW Plt Count MPV Neut # (Auto) Lymph # (Auto) [place] # (Auto) Eos # (Auto) Baso # (Auto) Absolute Nucleated RBC Nucleated RBC % Sodium Potassium Chloride Carbon Dioxide Anion Gap BUN Creatinine Estimated GFR (MDRD) Glucose POC Whole Bld Glucose 194 H Calcium Total Bilirubin AST ALT Alkaline Phosphatase Troponin I High Sens Total Protein Albumin Globulin Albumin/Globulin Ratio Lipase - Rads (name of study) CT Head Radiology: EMP read contemporaneously (Age-related changes with atrophy and encephalomalacia in the left frontal lobe consistent with prior infarct which was known.) PD MEDICAL DECISION MAKING - ED course ED course: 87yo female with hx afib on DOAC with brief episode of nonspecific dysequilibrium. Reseolved now with normal/baseline exam, nl gait. DDx is broad and includes TIA. Encouraged compliance with DOAC and educated on purpose. Departure - Departure Disposition: 01 Home, Self Care Clinical Impression: Dizziness Condition: Good Record reviewed to determine appropriate education?: Yes Instructions: ED Dizziness UKO Comments: You are seen tonight for an episode of dizziness and disequilibrium. At this point we do not see any sign of stroke. It is possible that this could have been a TIA and I recommend you take your Pradaxa as prescribed. We did a CAT scan of your head which demonstrated no evidence of recent or acute stroke. We do not see evidence of the old stroke in the left frontal lobe. Return for new or worsening symptoms but I think follow-up with your primary care physician on return home is reasonable. We do recommend you take your medications as prescri bed. Discharge Date/Time: 09/18/22 23:06
--- NOTE | 2022-09-18 22:39 | CT Report ---
PROCEDURE: HEAD WO INDICATIONS: Dizziness TECHNIQUE: Noncontrast 4.5 mm thick angled axial sections acquired from the foramen magnum to the vertex. For r adiation dose reduction, the following was used: automated exposure control, adjustment of mA and/or kV according to patient size. COMPARISON: None. FINDINGS: Image quality: Excellent. CSF spaces: There is moderate cerebral volume loss with prominence of the ventricles and sulci. Basa l cisterns are patent. No extra-axial fluid collections. Brain: No intracranial hemorrhage, mass, or mass effect. There is a region of cortical and subcortic al encephalomalacia within the left frontal lobe consistent with sequelae of a prior infarct. Aburto-wh ite matter interface is otherwise preserved. There are subcortical and periventricular white matter h ypodensities consistent with moderate chronic small vessel ischemic changes. Skull and face: Calvarium and visualized facial bones are intact, without suspicious lesions. Sinuses: Visualized sinuses demonstrate mild mucosal thickening within the ethmoid sinuses and front oethmoidal recesses. Mastoid air cells are clear. IMPRESSION: 1. No definite acute intracranial abnormality. 2. Left frontal lobe encephalomalacia consistent with sequelae of a prior infarct. 3. Moderate cerebral volume loss and chronic white matter small vessel ischemic changes. Reviewed by: Elgin Dexter MD on 09/18/2022 10:38 PM PDT Approved by: Elgin Dexter MD on 09/18/2022 10:38 PM PDT Station ID: [id number]
[2022-09-18 23:06] VITALS: BP 140/90
== END 2022-09-18 23:06 | disposition home or self-care (01) ==
LOC: ED 19:01
DX: R42 Dizziness and giddiness (principal); I48.91 Unspecified atrial fibrillation; Z79.01 Long term (current) use of anticoagulants
CPT/HCPCS: 36415; 80053; 83690; 84484; 85025; 93005; 99283; 99284

== ENCOUNTER 2023-04-23 00:05 | Emergency (ER) | payer MEDICARE, BC ==
[2023-04-23 00:11] VITALS: BP 157/101
[2023-04-23 00:28] LABS: RAPID STREP SCREEN Negative (Negative)
--- NOTE | 2023-04-23 02:03 | ED Physician Documentation ---
PD HPI HEENT - Stated complaint Stated Complaint: SORE THROAT - Chief complaint Chief Complaint: Heent - History obtained from History obtained from: Patient - Additional information Additional information: HPI from patient and family member at bedside. Patient c/o sore throat, mild cough since earlier this evening. Household contact is also registered at this time as ED patient for similar symptoms. Patient denies fever, shortness of breath. Symptoms began this evening. Review of Systems Constitutional: denies: Fever Throat: reports: Sore throat Respiratory: reports: Cough. denies: Dyspnea PD PAST MEDICAL HISTORY - Past Medical History Past Medical History: Yes Cardiovascular: Hypertension, High cholesterol, Atrial fibrillation Respiratory: Asthma Neuro: CVA Endocrine/Autoimmune: Type 2 diabetes, HyPOthyroidism GI: None ORACLE EBS CONSULTANT: None, Breast cancer : Chronic bladder infection HEENT: None Psych: None Musculoskeletal: None Derm: None - Past Surgical History Past Surgical History: Yes General: Cholecystectomy /ORACLE EBS CONSULTANT: Other - Present Medications Home Medications: Ambulatory Orders Medication Instructions Recorded Confirmed Atorvastatin [Lipitor] 10 mg PO DAILY 03/21/22 04/23/23 Calcium Carbonate [Calcium] 1 tab PO DAILY 03/21/22 04/23/23 Levothyroxine [Synthroid] 88 mcg PO DAILY 03/21/22 04/23/23 SITagliptin [Januvia] 100 mg PO DAILY 03/21/22 04/23/23 Apixaban [Eliquis] 2.5 mg ORAL BID 04/23/23 04/23/23 Metoprolol Succinate [Toprol Xl] 50 mg PO BID 04/23/23 04/23/23 - Allergies Allergies/Adverse Reactions: Allergies Allergy/AdvReac Type Severity Reaction Status Date / Time moxifloxacin [From Avelox] Allergy Unknown Verified 04/23/23 00:08 - Social History Does the pt smoke?: No Smoking Status: Never smoker Does the pt drink ETOH?: No Does the pt have substance abuse?: No - Immunizations Immunizations are current?: Yes PD ED PE NORMAL - Vitals Vital signs reviewed: Yes - General General: Alert and oriented X 3, No acute distress, Well developed/nourished - HEENT HEENT: Moist mucous membranes, Pharynx benign - Neck Neck: Supple, no meningeal sign - Respiratory Respiratory: No respiratory distress, Clear bilaterally Results - Vitals Vitals: Vital Signs - 24 hr 04/23/23 00:08 Temperature 37.1 C Heart Rate 83 Respiratory 18 Rate Blood Pressure 157/101 H O2 Saturation 95 Oxygen O2 Source Room air - Labs Labs: Microbiology 04/23/23 00:15 Group A Strep Throat Culture - Preliminary Throat CULTURE IN PROGRESS. RESULTS TO FOLLOW. Laboratory Tests 04/23/23 00:15 Group A Strep Rapid Negative PD Medical Decision Making - ED course Complexity details: considered differential, d/w patient, d/w family ED course: Symptoms limited to sore throat and mild, nonproductive cough, onset this evening. Lungs are CTA bilaterally , no respiratory distress; no imaging is indicated at this time. Rapid strep is negative. Results d/w patient, family. Departure - Departure Disposition: Home, Self Care Clinical Impression: Pharyngitis Condition: Good Instructions: ED Pharyngitis Viral Report Pending Comments: The rapid strep test was negative. As we discussed, the lab will next do a culture on the same swab/sample. This is more accurate than the rapid test. It takes 1 to 2 days for the culture to result. If the culture indicates there is an infection, you will receive a phone call, and an antibiotic can be sent to your pharmacy of choice. With the rapid test being negative for strep, the most likely cause is a virus. The swab will not test for viruses, but if it is a viral cause, it should resolve without specific intervention within the next few days. Discharge Date/Time: 04/23/23 02:25
--- NOTE | 2023-04-24 12:40 | ED Physician Documentation ---
ED Addendum - Addendum Addendum: 04/24/23 12:40 Culture reviewed, negative throat culture.
== END 2023-04-23 02:25 | disposition home or self-care (01) ==
LOC: ED 00:05
DX: J02.9 Acute pharyngitis, unspecified (principal)
CPT/HCPCS: 87070; 87430; 99283

== ENCOUNTER 2023-10-04 13:21 | Emergency (ER) | payer MEDICARE, BC ==
[2023-10-04 13:40] VITALS: O2SAT 100
--- NOTE | 2023-10-04 13:44 | ED Physician Documentation ---
PD HPI ALTERED MENTAL STATUS - Stated complaint Stated Complaint: CONFUSION - Chief complaint Chief Complaint: Neuro - History obtained from History obtained from: Family - Additional information Additional information: This is a 88-year-old female with a past medical due to stroke as well as dementia. She lives with her daughter. She presents today with confusion. Daughter states that her and her left the house around 5 AM and at that time the patient appeared in her usual state of health. Daughter called the patient later in the day and they could see on a house video surveillance that the patient was getting up to go possibly answer the phone but then was not answering the phone, and she also was trying to do some knitting or crocheting but was not able to do so which is something she normally would be able to do. She has also been fidgety, and forgetful. She has not had any change in her speech, no facial droop, no focal weakness or numbness. She has not had any falls. She has had issues with confusion in the past related to urinary tract infection though daughter felt that this was more abrupt and she was concern for possible stroke. Daughter also notes for the last couple days the patient has not been interested in eating or drinking as much, she does complain of mild nausea apparently, no vomiting, no abdominal pain. No known dysuria urgency or frequency, no fever or chills, no cough or URI symptoms. She has not been complaining of chest pain or abdominal pain. She was recently started on another blood pressure medication for her hypertension and they just picked that up today and she will start it today, no new medications have been started yet. 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, Breast cancer : Chronic bladder infection HEENT: None Psych: None Musculoskeletal: None Derm: None - Past Surgical History Past Surgical History: Yes General: Cholecystectomy /MAT CLEANING MACHINE OPERATOR: Other - Present Medications Home Medications: Ambulatory Orders Medication Instructions Recorded Confirmed Atorvastatin [Lipitor] 10 mg PO DAILY 03/21/22 10/04/23 Calcium Carbonate [Calcium] 1 tab PO DAILY 03/21/22 10/04/23 Levothyroxine [Synthroid] 88 mcg PO DAILY 03/21/22 10/04/23 SITagliptin [Januvia] 100 mg PO DAILY 03/21/22 10/04/23 Apixaban [Eliquis] 2.5 mg ORAL BID 04/23/23 10/04/23 Metoprolol Succinate [Toprol Xl] 50 mg PO BID 04/23/23 10/04/23 Potassium Chloride [K-Dur] 20 meq PO BIDWM #14 tablet 08/12/23 10/04/23 Ondansetron Odt [Zofran] 4 mg TL Q6H PRN #10 tablet 10/04/23 cephALEXin [Keflex] 500 mg PO BID 7 Days #14 cap 10/04/23 - Allergies Allergies/Adverse Reactions: Allergies Allergy/AdvReac Type Severity Reaction Status Date / Time moxifloxacin [From Avelox] Allergy Unknown Verified 10/04/23 13:24 - Social History Does the pt smoke?: No Smoking Status: Never smoker Does the pt drink ETOH?: No Does the pt have substance abuse?: No - Immunizations Immunizations are current?: Yes PD ED PE NORMAL - Vitals Vital signs reviewed: Yes - General General: Alert and oriented X 3 (initially not oriented in triage, however for me she is oriented x 4. ), No acute distress, Well developed/nourished - HEENT HEENT: Atraumatic, PERRL, EOMI, Ears normal, Moist mucous membranes, Pharynx benign - Neck Neck: Supple, no meningeal sign, No bony TTP, No adenopathy - Cardiac Cardiac: RRR, No murmur - Respiratory Respiratory: No respiratory distress, Clear bilaterally - Abdomen Abdomen: Normal bowel sounds, Soft, Non tender, Non distended - Derm Derm: Normal color, Warm and dry, No rash - Extremities Extremities: No deformity, No tenderness to palpate, Normal ROM s pain, No edema, No calf tenderness / cord - Neuro Neuro: Alert and oriented X 3, orchid worker 2-12 intact, No motor deficit, No sensory deficit, Normal speech Eye Opening: Spontaneous Motor: Obeys Commands Verbal: Oriented GCS Score: 15 - Psych Psych: Normal mood, Normal affect Results - Vitals Vitals: Vital Signs - 24 hr 10/04/23 10/04/23 13:24 15:53 Temperature 36.5 C 36.1 C L Heart Rate 95 94 Respiratory 16 16 Rate Blood Pressure 150/100 H 194/91 H O2 Saturation 100 100 Oxygen O2 Source Room air - EKG (time done) No standard instances EKG releavant findings:: EKG personally interpreted by author of this note. Relevant findings are: Rate: Rate (enter#) (83) Rhythm: Atrial fibrillation Ischemia: Q waves Computer interpretation: Agree with computer - Labs Labs: Laboratory Tests 10/04/23 10/04/23 10/04/23 13:43 13:43 13:43 WBC 9.2 RBC 5.31 Hgb 16.3 H Hct 50.6 H MCV 95.3 MCH 30.7 MCHC 32.2 RDW 13.5 Plt Count 175 MPV 11.2 H Neut # (Auto) 5.4 Lymph # (Auto) 2.6 [place] # (Auto) 0.8 Eos # (Auto) 0.3 Baso # (Auto) 0.0 Absolute Nucleated RBC 0.00 Nucleated RBC % 0.0 PT 14.0 H INR 1.3 H Sodium 139 Potassium 3.5 Chloride 98 L Carbon Dioxide 36 H Anion Gap 5.0 L BUN 11 Creatinine 0.7 Estimated GFR (MDRD) 79 L Glucose 193 H Calcium 9.7 Total Bilirubin 0.9 AST 39 ALT 27 Alkaline Phosphatase 124 H Troponin I High Sens Total Protein 6.7 Albumin 4.1 Globulin 2.6 Albumin/Globulin Ratio 1.6 Lipase 18 Urine Color Urine Clarity Urine pH Ur Specific [place] Urine Protein Urine Glucose (UA) Urine Ketones Urine Occult Blood Urine Nitrite Urine Bilirubin Urine Urobilinogen Ur Leukocyte Esterase Urine RBC Urine WBC Ur Squamous Epith Cells Urine Bacteria Ur Microscopic Review Urine Culture Comments 10/04/23 10/04/23 13:43 15:00 WBC RBC Hgb Hct MCV MCH MCHC RDW Plt Count MPV Neut # (Auto) Lymph # (Auto) [place] # (Auto) Eos # (Auto) Baso # (Auto) Absolute Nucleated RBC Nucleated RBC % PT INR Sodium Potassium Chloride Carbon Dioxide Anion Gap BUN Creatinine Estimated GFR (MDRD) Glucose Calcium Total Bilirubin AST ALT Alkaline Phosphatase Troponin I High Sens 9.8 Total Protein Albumin Globulin Albumin/Globulin Ratio Lipase Urine Color YELLOW Urine Clarity HAZY Urine pH 7.0 Ur Specific [place] 1.015 Urine Protein NEGATIVE Urine Glucose (UA) NEGATIVE Urine Ketones NEGATIVE Urine Occult Blood NEGATIVE Urine Nitrite NEGATIVE Urine Bilirubin NEGATIVE Urine Urobilinogen 0.2 (NORMAL) Ur Leukocyte Esterase MODERATE H Urine RBC 0-5 Urine WBC 11-25 H Ur Squamous Epith Cells NONE SEEN Urine Bacteria Rare Ur Microscopic Review INDICATED Urine Culture Comments INDICATED - Rads (name of study) No standard instances Relevant Findings:: Final report received, See rad report PD Medical Decision Making - ED course Complexity details: reviewed results, re-evaluated patient, considered differential, d/w patient, d/w family ED course: This is a 88-year-old female who presented with daughter due to confusion as described in HPI. Confusion started sometime after 5 AM this morning though the exact time is unknown as no one was with the patient but she was only seen on video camera during that time. On arrival here, patient was initially somewhat disoriented in triage however on my exam the patient is oriented x4, follows all commands and has no focal neuro changes. She does get fidgety at times and somewhat forgetful but no other acute neurologic changes. Differentials conside red include infection, electrolyte disturbance, dehydration, stroke. We obtained labs which were relatively stable, stable CBC and CMP, troponin negative, urinalysis is suggestive of infection and sent for culture. CT head shows chronic changes but no acute findings. The patient is on Eliquis and is not a candidate for intervention should there be acute occlusion, and symptoms likely due to urinary tract infection, No additional imaging indicated today. The patient received 500 mL of normal saline and voided several times here, she is stable for discharge home for treatment of UTI, will start Keflex twice daily x7 days pending urine culture which is pending. I discussed return precautions if any new or worsening symptoms including fever, flank pain, vomiting or other new concerns. Patient discharged with daughter in stable condition. Departure - Departure Disposition: 01 Home, Self Care Clinical Impression: Confusion Urinary tract infection Qualifiers: Urinary tract infection type: acute cystitis Hematuria presence: without hematuria Qualified Code(s): N30.00 - Acute cystitis without hematuria Condition: Good Instructions: ED Confusion, ED UTI Cystitis Female Prescriptions: cephALEXin [Keflex] 500 mg PO BID 7 Days #14 cap Ondansetron Odt [Zofran] 4 mg TL Q6H PRN #10 tablet PRN Reason: Nausea / Vomiting Comments: Gloria's head CT is stable. She does have mild dehydration and received 500ml of fluid (a half liter, or about 2 big classes of water). It does look like she mendoza s a urinary infection and we will send the urine for a culture. For now, I will start her on an antibiotic called Keflex which she takes twice a day for 7 days. If she Has worsening symptoms such as fever or vomiting, or becomes more lethargic or confused, please have her return to the ER. Please encourage her to drink more water throughout the day as I do think this is contributing to her symptoms as well. I have also prescribed a nausea tablet. All medications were sent to [facility] in [place]. Forms: PCP List Discharge Date/Time: 10/04/23 15:56
[2023-10-04 13:47] LABS: BASOPHILS % (AUTO) 0.4 %; EOSINOPHILS # (AUTO) 0.3 10^3/uL (0.0-0.7); EOSINOPHILS % (AUTO) 3.7 %; HCT - HEMATOCRIT 50.6 % (37.0-47.0); HGB - HEMOGLOBIN 16.3 g/dL (12.0-16.0); LYMPHOCYTES # (AUTO) 2.6 10^3/uL (1.5-3.5); LYMPHOCYTES % (AUTO) 28.8 %; MEAN CORPUSCULAR HEMOGLOBIN 30.7 pg (27.0-31.0); MEAN CORPUSCULAR HGB CONC 32.2 g/dL (32.0-36.0); MEAN CORPUSCULAR VOLUME 95.3 fL (81.0-99.0); MEAN PLATELET VOLUME 11.2 fL (7.9-10.8); MONOCYTES # (AUTO) 0.8 10^3/uL (0.0-1.0); MONOCYTES % (AUTO) 8.2 %; NEUTROPHILS # (AUTO) 5.4 10^3/uL (1.5-6.6); NEUTROPHILS % (AUTO) 58.7 %; PLT - PLATELET COUNT 175 10^3/uL (130-450); RED BLOOD COUNT 5.31 10^6/uL (4.20-5.40); RED CELL DISTRIBUTION WIDTH 13.5 % (12.0-15.0); WHITE BLOOD COUNT 9.2 x10^3/uL (4.8-10.8)
[2023-10-04 13:54] LABS: INR 1.3 (0.8-1.2)
[2023-10-04 14:01] LABS: ALBUMIN 4.1 g/dL (3.2-5.5); ALBUMIN/GLOBULIN RATIO 1.6 (1.0-2.2); BILIRUBIN,TOTAL 0.9 mg/dL (0.2-1.0); CALCIUM 9.7 mg/dL (8.5-10.3); CREATININE 0.7 mg/dL (0.6-1.3); POTASSIUM 3.5 mmol/L (3.5-4.5); TOTAL PROTEIN 6.7 g/dL (6.4-8.9)
[2023-10-04] MEDS ORDERED: SODIUM CHLORIDE 0.9% 500 ML IV STA (14:14)
--- NOTE | 2023-10-04 14:40 | CT Report ---
PROCEDURE: HEAD WO INDICATIONS: AMS TECHNIQUE: Noncontrast 4.5 mm thick angled axial sections acquired from the foramen magnum to the vertex. For r adiation dose reduction, the following was used: automated exposure control, adjustment of mA and/or kV according to patient size. COMPARISON: CT head September 18, 2022 FINDINGS: Image quality: Excellent. CSF spaces: Basal cisterns are patent. No extra-axial fluid collections. Ventricles are normal in size and shape. Brain: Diffuse parenchymal volume loss with symmetric expansion of the CSF containing spaces. Periven tricular white matter hypodensities are sequela of chronic microvascular ischemic disease. Prior left frontoparietal stroke with subsequent encephalomalacia. No midline shift. No intracranial masses or hemorrhage. Aburto-white matter interface is normal. Skull and face: No fracture. Mucosal thickening of the frontal and ethmoidal sinuses. Mixed densities within the right maxillary sinus. The mastoid air cells are clear.. IMPRESSION: No acute intracranial findings. Sequelae of chronic microvascular ischemic disease and prior stroke. Densities within the right sinus are suggestive of fungal etiologies. Reviewed by: Kody Wilkinson MD on 10/04/2023 1:39 PM [place] Approved by: Kody Wilkinson MD on 10/04/2023 1:39 PM [facility] Station ID: [id number]
[2023-10-04 15:06] LABS: BILIRUBIN,URINE NEGATIVE (NEGATIVE); GLUCOSE, URINE (UA) NEGATIVE (NEGATIVE); KETONES,URINE (UA) NEGATIVE (NEGATIVE); LEUKOCYTE ESTERASE, URINE MODERATE (NEGATIVE); NITRITE,URINE NEGATIVE (NEGATIVE); OCCULT BLOOD,URINE NEGATIVE (NEGATIVE); PROTEIN,URINE NEGATIVE (NEGATIVE); UROBILINOGEN,URINE 0.2 (NORMAL) E.U./dL (NORMAL)
[2023-10-04 15:12] LABS: CLARITY,URINE HAZY (CLEAR)
[2023-10-04 15:30] LABS: BACTERIA,URINE Rare /HPF (None Seen); RBC,URINE 0-5 /HPF (0-5); SQUAMOUS EPITHELIAL CELL,UR NONE SEEN (<= Few)
[2023-10-04 16:01] VITALS: BP 194/91
== END 2023-10-04 15:56 | disposition home or self-care (01) ==
LOC: ED 13:21
DX: N30.00 Acute cystitis without hematuria (principal); R41.0 Disorientation, unspecified; I10 Essential (primary) hypertension; E78.00 Pure hypercholesterolemia, unspecified; I48.91 Unspecified atrial fibrillation; E11.9 Type 2 diabetes mellitus without complications; E03.9 Hypothyroidism, unspecified; Z87.440 Personal history of urinary (tract) infections; Z79.899 Other long term (current) drug therapy; Z79.84 Long term (current) use of oral hypoglycemic drugs; Z79.01 Long term (current) use of anticoagulants; Z86.73 Personal history of transient ischemic attack (TIA), and cerebral infarction without residual deficits
CPT/HCPCS: 36415; 80053; 81001; 81003; 83690; 84484; 85025; 85610; 87086; 93005; 99284

== ENCOUNTER 2023-10-21 12:51 | Outpatient (CLI) | payer MEDICARE, BC | END 2023-10-21 12:52 | disposition home or self-care (01) | LOC: LAB.R 12:51 | PROVIDERS: ATTEND Nurse Practitioner | DX: Z53.9 Procedure and treatment not carried out, unspecified reason (principal) | CPT/HCPCS: 80061; 83721; 84443 ==